=== PATIENT | female | born 1945 | race Caucasian/White ===

== ENCOUNTER 2017-08-30 13:17 | Outpatient (AMBR) | payer MEDICARE, MEDICAID, SELFPAY ==
--- NOTE | 2017-08-30 13:46 | PTNOTE_ITS ---
PT OP Initial Eval Patient Information Visit Reasons: back pain Medical Diagnosis: back pain Start of Care: 08/30/17 Date of Onset: 4 yrs ago Initial Assessment Subjective Pt is 72 yr old female who c/o LBP that started when she hit her head 4 yrs ago on and off that has worsened over the past 2 yrs. She has controlled the pain with pills but she doesn't want to take anymore. Today pain level is about 3/10 but increased at times to the point that she can't shop and has to rest due to sharp pain and she denies N/T in that area. PMH: hypothyroidism, osteoporosis Imaging: x-ray of t/S with provider Pt goal: to get rid of the pain Objective T/S AROM: Flexion: WNL Extension: 15% of normal Periscapular mm strength: mid traps: 4-/5 low traps: 4-/5 Scapular stability: 4-/5 Observation: increased kyphosis of T/S TTP: R side paraspinals and ribs at T7-T10 level C/S screen: negative for referred pain. Good C/S ROM Assessment Pt presents with increased T/S kyphosis and decreased periscapular mm strength but pain was not provoked with movement screens, deep pressure/palpation or AROM today. Pain in that area is usually consistent with articular restrictions and myofascial splinting and guarding due to mechanical pain. She has significantly limited T/S extension ROM likely due to osteoporosis but PT is concerned about more serious underlying pathology and recommends further diagnostic imaging. Short Term and Senior Care Goals 1. Independent with HEP 2. Improved T/S extension to 30% 3. Improved low and mid trapezius strength to 4+/5 4. Pt will tolerate shopping for 1 hour with <=3/10 pain Treatment Plan 1. Manual therapy 2. Therex 3. Modalities as indicated, moist heat pack, ice, electrical stimulation Frequency and Duration 2x a week for 6 weeks Certification Dates: 08/30/17 to 11/30/17 Office Procedures PT Procedures PT Date of Service: 08/30/17 OP PT Eval Mod Complex 30 minutes: Yes
== END 2017-09-04 23:59 ==
PROVIDERS: PCP Internal Medicine; Referring Provider Internal Medicine; Visit Provider Internal Medicine
DX: I10 Essential (primary) hypertension (principal)
CPT/HCPCS: 97162; G8978; G8979

== ENCOUNTER → 2024-01-11 | Outpatient (CLI) | payer MEDICARE, SELFPAY ==
[2024-01-11 10:32] LABS: Basophils % (Auto) 0 % (0-2.5); Eosinophils # (Auto) 0.3 Thou/mm3 (0.0-0.5); Eosinophils % (Auto) 4 % (0-10); Hematocrit 36.5 % (36.0-46.0); Immature Granulocytes % (Auto) 0 % (0-0); Immature Granulocytes Auto 0.03 Thou/mm3 (0.00-0.00); Immature Reticulocyte Fraction 7.8 % (3.0-15.9); Lymphocytes # (Auto) 2.1 Thou/mm3 (1.0-4.8); Lymphocytes % (Auto) 31 % (10-50); Mean Corpuscular HGB Conc 32.9 g/dl (31.0-37.0); Mean Corpuscular Volume 88 fL (80-100); Monocytes # (Auto) 0.5 Thou/mm3 (0.0-0.8); Monocytes % (Auto) 8 % (0-12); Neutrophils # (Auto) 3.8 Thou/mm3 (1.8-7.7); Neutrophils % (Auto) 56 % (37-80); Nucleated Red Blood Cell % 0 /100 WBC (0); Platelet Count 272 Thou/mm3 (140-440); RDW Standard Deviation 42.7 fL (36.4-46.3); Red Blood Count 4.14 Miln/mm3 (4.00-5.20); Reticulocyte % (Auto) 1.1 % (0.5-1.5); Reticulocyte Absolute Auto 43.5 Biln/L (25.0-75.0); Reticulocyte Hgb Content 31.9 pg (28.0-35.0); White Blood Count 6.8 Thou/mm3 (3.6-11.0)
[2024-01-11 10:37] LABS: Vitamin B12 406 pg/mL (211-911)
[2024-01-11 10:49] LABS: Alanine Aminotransferase 8 U/L (10-49); Albumin, Serum 4.4 gm/dL (3.4-4.8); Alkaline Phosphatase 106 U/L (46-116); Anion Gap 5 (7-16); Aspartate Amino Transferase 17 U/L (0-34); BUN/Creatinine Ratio 21 Ratio (12-20); Bilirubin,Total 0.5 mg/dL (0.3-1.2); Blood Urea Nitrogen 17 mg/dL (9-23); Calcium 9.7 mg/dL (8.3-10.6); Calcium (Corrected) 9.7 mg/dL (8.5-10.1); Carbon Dioxide 26.1 mMol/L (20.0-31.0); Cardiac Risk Estimate 3.1 RATIO (3.7-5.6); Chloride 109 mMol/L (98-107); Cholesterol 160 mg/dL (132-200); Creatinine (Component) 0.8 mg/dL (0.6-1.3); Free T4 (Free Thyroxine) 1.18 ng/dL (0.89-1.76); Globulin 2.2 gm/dL (2.3-3.5); Glucose 88 mg/dL (74-106); HDL Cholesterol 51 mg/dL (40-60); LDL Cholesterol,Calculated 96 mg/dL (0-130); Osmolality,Calculated 279 (275-295); Potassium 4.5 mMol/L (3.4-5.1); Sodium 140 mMol/L (136-145); Thyroid Stimulating Hormone 0.01 uIU/mL (0.55-4.78); Total Protein 6.6 gm/dL (5.7-8.2); Triglycerides 66 mg/dL (30-150); eGFR > 60 See Note
[2024-01-11 11:07] LABS: Iron 114 mcg/dL (50-170); Total Iron Binding Capacity 268 mcg/dL (250-425)
== END | disposition home or self-care (01) ==
LOC: COPL 08:35
PROVIDERS: PCP Internal Medicine Hospice and Palliative Medicine; Referring Provider Internal Medicine Hospice and Palliative Medicine; Visit Provider Internal Medicine Hospice and Palliative Medicine
DX: I10 Essential (primary) hypertension (principal); E03.9 Hypothyroidism, unspecified; R53.83 Other fatigue
CPT/HCPCS: 36415; 80053; 80061; 82607; 82746; 83540; 83550; 84439; 84443; 85025; 85046

== ENCOUNTER → 2024-03-13 | Outpatient (CLI) | payer MEDICARE, SELFPAY ==
--- NOTE | 2024-03-13 | XR_ITS ---
Examination: Left knee 4 views TECHNIQUE: AP oblique lateral axial left knee 4 views Exam date and time: March 13, 2024 1308 hours INDICATIONS: Patient fell one month ago with injury to the knee, knee pain. FINDINGS: Prominent osteopenia Suspicious for nondisplaced fracture inferior patella No patellar dislocation IMPRESSION: Recommend rescanning knee follow-up to exclude nondisplaced fracture inferior patella
== END | disposition home or self-care (01) ==
PROVIDERS: Referring Provider Nurse Practitioner Family; Visit Provider Nurse Practitioner Family
DX: S82.092A Other fracture of left patella, initial encounter for closed fracture (principal); W19.XXXA Unspecified fall, initial encounter
CPT/HCPCS: 73564

== ENCOUNTER 2025-01-06 14:24 | Emergency (ER) | payer MEDICARE, SELFPAY ==
[2025-01-06 14:25] VITALS: BMI 24.7
[2025-01-06 14:39] VITALS: BP 156/91; PULSE 64; RESP 18; TEMP 37.1; O2SAT 99
--- NOTE | 2025-01-06 14:42 | EDNOTE_ITS ---
Upper Extremity Injury RME/HPI General Chief Complaint: Fall Stated Complaint: R PINKY DEFORMITY S/P SLIP & FALL Time Seen by Provider: 01/06/25 14:39 Arrival date/time: 01/06/25 14:24 RME / HPI RME / HPI narrative: DR. LYNN MAIN ED EVALUATION: 79-year-old female with a history of thyroid disease on levothyroxine presents to the Emergency Department accompanied by her for evaluation of a right pinky finger injury that occurred about one hour ago around 1:40 PM. The patient reports she was at home in the bathroom when she slipped and fell, injuring her right pinky finger. She denies hitting her head, losing consciousness, or sustaining any other injuries. She reports pain, swelling, and bruising localized to the right pinky. No numbness, tingling, or weakness. No known allergies. Related Data Home Medications ?Medication ?Instructions ?Recorded ?Confirmed levothyroxine 25 mcg capsule 25 mcg PO QDAY 08/20/18 Previous Rx's ?Medication ?Instructions ?Recorded cetirizine 10 mg capsule (Zyrtec) 10 mg PO QDAY #14 ca ps 05/19/17 diphenhydramine HCl 25 mg capsule 25 mg PO TID PRN all ergy symptoms 08/20/18 (Benadryl) #30 caps Allergies Allergy/AdvReac Type Severity Reaction Status Date / Time No Known Allergies Allergy Verified 01/06/25 14:27 Review of Systems Review of Systems Systems Reviewed: All systems reviewed, normal except as documented Past Medical History Social History SMOKING STATUS: Never smoker SUBSTANCE USE: does not use ALCOHOL: Never ED Exam Narrative Physical exam: GENERAL APPEARANCE: alert and oriented x 4, well-developed, well-nourished, no acute distress VITALS: All vitals were reviewed and the pulse ox is 99% on room air, which is normal according to my interpretation. HEENT: Normocephalic, atraumatic; pupils equal, round, reactive to light; EOMI; mucous membranes pink, moist; oropharynx clear NECK: Supple LUNGS: CTABL; no wheezes, no rales, no rhonchi HEART: Regular rate, regular rhythm; normal S1, S2; no murmurs ABDOMEN: non distended; normal BS; soft, no tenderness, no guarding, no rebound; no masses, no organomegaly, no hernia BACK: no CVA tenderness EXTREMITIES: Right pinky finger swollen, bruised, and displaced laterally; limited range of motion due to pain; rest of extremities are normal without trauma NEUROLOGIC: awake; alert and oriented x4; cranial nerves II-XII grossly intact; no focal sensory or motor deficits PSYCHIATRIC: appropriate mood and affect SKIN: warm, dry, normal color; no rashes Course Quality Measures none Orders Category Date Time Status XR finger RT min 2V Stat Exams 01/06/25 14:42 Completed XR finger RT min 2V Stat Exams 01/06/25 17:34 Taken XR hand comp RT min 3V Stat Exams 01/06/25 14:42 Completed HYDROcodone*/APAP 5/325 [[place] 5/325] Med 01/06/25 14:42 Discontinued 1 tab PO X1 ONE HYDROcodone*/APAP 5/325 [[place] 5/325] Med 01/06/25 17:07 Discontinued 1 tab PO X1 ONE Lidocaine 1% 20 ml [Xylocaine 1% 20 ML] Med 01/06/25 17:09 Discontinued 10 ml INFL X1 ONE Vital Signs Vital signs: Vital Signs Temperature 98.7 F 01/06/25 14:39 Pulse Rate 64 01/06/25 14:39 Respiratory Rate 18 01/06/25 14:39 Blood Pressure 156/91 H 01/06/25 14:39 Pulse Oximetry (%) 99 01/06/25 14:39 Oxygen Delivery Method Room Air 01/06/25 14:39 PROCEDURES: Procedure Comment Procedure: Digital and hematoma block with alignment of right fifth finger Procedure Procedure: 1% lidocaine used for digital and hematoma block. After adequate anesthesia, gentle traction and manipulation performed to achieve alignment of right pinky finger. Post-procedure: Good alignment achieved, cap refill and sensation intact, finger splinted, patient tolerated well without complications. Extremity Injury MDM Narrative MDM Narrative:: ILatisha am scribing for and in the presence of Dr. Lynn. Patient data External records reviewed:: [facility] previous records Clinical information provided by:: patient Social determinants that could affect healthcare access:: none Patient has the following chronic illnesses:: thyroid disease on levothyroxine How is presenting disease/condition affected by chronic disease/condition?: uneffected by Evaluation data The following diagnostics were reviewed and interpreted by me:: radiology exam(s) Lab and/or radiology exams considered but not ordered:: none Interpretation Summary: Procedure(s): XR hand comp RT min 3V Accession Number(s): [id number] cc: Aj Wolff MD; NO PRIMARY/FAMILY,PHYSICIAN; Prema Lynn MD~ Examination: Hand, right 3 views Technique: Hand AP, oblique, lateral 3 views Date and time of exam: January 06, 2025, 1454 hours INDICATIONS: Ground-level fall today with injury of the hand, hand pain. FINDINGS: Severe osteopenia Acute fracture mild offset involving the proximal aspect proximal phalanx fifth digit. Dislocation at the proximal interphalangeal joint fifth digit No foreign body Old fracture deformity distal radial metaphysis IMPRESSION: Acute fracture proximal aspect proximal phalanx fifth digit Dislocation at the proximal interphalangeal joint fifth digit Dictated By: Aj Wolff MD Procedure(s): XR finger RT min 2V Accession Number(s): [id number] cc: Aj Wolff MD; NO PRIMARY/FAMILY,PHYSICIAN; Prema Lynn MD~ EXAMINATION: Right hand fifth digit TECHNIQUE: AP lateral right hand fifth digit 2 views Date and time: January 06, 2025, 1447 hours INDICATIONS: Ground-level fall today with injury to the hand, fifth digit pain. FINDINGS: Acute fracture proximal aspect proximal phalanx fifth digit with 3 mm offset at the fracture site Dislocation of the proximal interphalangeal joint fifth digit No foreign body IMPRESSION: Acute fracture proximal aspect proximal phalanx fifth digit Dislocation at the proximal interphalangeal joint fifth digit Dictated By: Aj Wolff MD Medications / Prescriptions Medications or Prescriptions considered but not ordered:: none Medication administrations:: Medication Administration History Discontinued Medications Hydrocodone Bitart/Acetaminophen (Hydrocodone/Apap 5/325 Tablet) 1 tab PO X1 ONE Stop: 01/06/25 14:43 Last Admin: 01/06/25 14:56 Dose: 1 tab Documented By: DAVID Hydrocodone Bitart/Acetaminophen (Hydrocodone/Apap 5/325 Tablet) 1 tab PO X1 ONE Stop: 01/06/25 17:08 Last Admin: 01/06/25 17:16 Dose: 1 tab Documented By: SAIMA Lidocaine HCl (Lidocaine Hcl 1% 20 Ml Vial) 10 ml INFL X1 ONE Stop: 01/06/25 17:10 Last Admin: 01/06/25 17:16 Dose: 10 ml Documented By: SAIMA Comments: Administered by dr. lynn see above Consultations Consultation(s) initiated? (list below): No Diagnosis Upper Extremity Injury Differential Diagnosis: other (Finger fracture, finger dislocation, and soft tissue injury/contusion.) Most likely diagnosis given after review of the tests above:: Closed traumatic PIP dislocation Fracture of proximal phalanx of finger of right hand Admission Indicated Admission indicated?: not indicated Admission Request Was there a request for admission?: No Disposition Plan Disposition Plan: Discharge Discharge Attestation Discharge Attestation: The patient and all family members were given an opportunity to ask questions and understood the discharge instructions. Discharge instructions specifically effects, indications for sooner follow up or return to the emergency department, and the expected course of current diagnosis. Patient condition: Stable Discharge Plan Plan Patient Disposition: HOME (Self Care) Prescriptions/Referrals Prescriptions/Med Rec: No Action diphenhydramine HCl [Benadryl] 25 mg capsule 25 mg PO TID PRN (Reason: allergy symptoms) Qty: 30 0RF levothyroxine 25 mcg capsule 25 mcg PO QDAY cetirizine [Zyrtec] 10 mg capsule 10 mg PO QDAY Qty: 14 0RF Referrals: No Primary/Family,Physician [Primary Care Provider] - In 1 week Problem List Clinical Impression: Closed traumatic PIP dislocation, Fracture of proximal phalanx of finger of right hand Patient/Caregiver Discharge Instructions Education Materials: ED Fracture, Finger, Closed Additional Instructions: Follow up with your doctor for referral to orthopedics for follow up Print Language: Welsh Stand Alone Forms: [employer] Award Info., Patient Portal Info Letter
[2025-01-06] MEDS: HYDROcodone/APAP 5/325 TABLET 1 TAB PO ×2 (14:56→17:16)
[2025-01-06] MEDS: LIDOCAINE HCL 1% 20 ML VIAL 10 ML INFL (17:16)
[2025-01-06 17:21] VITALS: BP 162/81; PULSE 57; RESP 16; TEMP 36.6; O2SAT 100
--- NOTE | 2025-01-06 17:34 | XR_ITS ---
EXAMINATION: Right hand fifth digit 2 views TECHNIQUE: Right hand fifth digit 2 views Date and time: January 06, 2025, 1735 hours, comparison number 03/2024 1447 hours INDICATIONS: Post reduction fractures and dislocation fifth digit. FINDINGS: Significant improvement in alignment of the fracture proximal phalanx fifth digit Reduction of the dislocation fifth digit IMPRESSION: Satisfactory reduction of the fracture proximal phalanx fifth digit Reduction of the dislocation proximal interphalangeal joint fifth digit
--- NOTE | 2025-01-06 17:34 | PC.NURSE ---
DR. HAYNES IN TO DO LOCAL BLOCK FOR RIGHT 5TH FINGER CLOSED REDUCTION. PT DID WELL. AWAITING FOLLOW UP XRAY
--- NOTE | 2025-01-06 17:50 | PC.NURSE ---
SPLINT APPLIED TO RIGHT FIFTH FINGER THEN MILAGROS TAPED TO 4TH FINGER
== END 2025-01-06 17:50 | disposition home or self-care (01) ==
PROVIDERS: Emergency Provider Emergency Medicine
DX: S62.612A Displaced fracture of proximal phalanx of right middle finger, initial encounter for closed fracture (principal); W01.0XXA Fall on same level from slipping, tripping and stumbling without subsequent striking against object, initial encounter; Y92.002 Bathroom of unspecified non-institutional (private) residence as the place of occurrence of the external cause
CPT/HCPCS: 29130; 73130; 73140; 99283; J3490; A9270